=== PATIENT | male | born 1980 | race Two or more races ===

== ENCOUNTER 2021-05-05 18:37 | Emergency (ER) | payer OTHER ==
[~2021-05-05] VITALS: Ht 182.9 cm; Wt 101.2 kg
--- NOTE | 2021-05-05 18:43 | NUR ---
PT BIBA TAKEN TO ER BED 11.
[2021-05-05 18:53] VITALS: BP 121/76
--- NOTE | 2021-05-05 19:03 | NUR ---
41 Y/O MALE BIBA. PATIENT PRESENTS TO ED WITH C/O SEIZURE. FAMILY STATES PT HAD A SIZURE EARLIER TODAY (TONIC/CLONIC) LASTING 2 MINUTES. 911 WAS CALLED AND PT DENIED TRANSPORT. AGAIN AT 1800 THIS EVENING PT HAD ANOTHER TONIC/CLONIC SEIZURE LASTING 5 MINUTES. 911 WAS AGIN CALLED AND TRANSPORTED THE PT. DENIES N/V/D; SKIN IS PINK/WARM/DRY; PT IS ALERT BUT NOT ORIENTED, POSTICTAL; PT IS UNABLE TO AMBULATE DUE TO PREVIOUS CVA IN 2014 LEAVING PT WITH FULL RIGHT SIDE DEFICITES; HR EVEN AND REGULAR; PT DENIES ANY FEVER, CP, SOB, OR COUGH AT THIS TIME; PATIENT STATES PAIN OF 0/10 AT THIS TIME; VSS; PATIENT POSITIONED FOR COMFORT; HOB ELEVATED; BEDRAILS UP X2; BED DOWN. ER MD MADE AWARE OF PT STATUS. HX: EPILEPSY, CVA, DM, ANEURISM (STINT PLACED) ALLERGIES TO PCN MEDS: GLIPIZIDE, ESCITALOPRAM, OXCARBAZEPINE, KEPPRA, ELIQUIS, VIMPAT
--- NOTE | 2021-05-05 19:08 | NUR ---
BLOOD WORK DROPPED AT LAB
--- NOTE | 2021-05-05 19:19 | NUR ---
Pt report given to CHARISSE VASQUEZ. Transfer of care at this time.
--- NOTE | 2021-05-05 19:35 | NUR ---
URINE DIPPED, RESULTS TO CHART
--- NOTE | 2021-05-05 19:50 | NUR ---
TO CT VIA [facility]
--- NOTE | 2021-05-05 20:03 | NUR ---
RETURNED FROM CT
[2021-05-05] MEDS ORDERED: LORazepam 2 MG/ML VIAL ONE (22:09)
[2021-05-05] MEDS ORDERED: LORazepam 2 MG/ML VIAL IVP ONE ×2 (22:10→22:15)
--- NOTE | 2021-05-05 22:10 | NUR ---
PREPARING FOR DISCHARGE. PT NOTED WITH SEIZURE ACTIVITY. DR. WEST AT BEDSIDE. PT MEDICATED WITH ATIVAN ORDERED.
[2021-05-05] MEDS ORDERED: levETIRAcetam 1,000 MG in NACL 0.9% 100 ML IV ONE (22:15)
--- NOTE | 2021-05-05 22:16 | NUR ---
EKG IN PROGRESS
[2021-05-05 22:44] LABS: BASOPHILS # (AUTO) 0.1 K/uL (0.00-0.22); BASOPHILS % (AUTO) 0.5 % (0.0-2.0); EOSINOPHILS # (AUTO) 0.5 K/uL (0-0.4); EOSINOPHILS % (AUTO) 3.5 % (0.0-4.0); HEMATOCRIT 45.7 % (36-52); HEMOGLOBIN 15.1 g/dL (12.0-18.0); LYMPHOCYTES # (AUTO) 3.9 K/uL (2.0-11.5); LYMPHOCYTES % (AUTO) 30.2 % (20.5-51.1); MEAN CORPUSCULAR HEMOGLOBIN 26 pg (27-31); MEAN CORPUSCULAR HGB CONC 33 g/dL (33-37); MEAN CORPUSCULAR VOLUME 79.9 fL (80-94); MONOCYTES # (AUTO) 0.9 K/uL (0.8-1.0); MONOCYTES % (AUTO) 6.6 % (1.7-9.3); NEUTROPHILS # (AUTO) 7.7 K/uL (1.8-7.7); NEUTROPHILS % (AUTO) 59.2 % (42.2-75.2); PLATELET COUNT (AUTO) 255 K/uL (140-450); RED BLOOD CELL COUNT(AUTO) 5.72 MIL/uL (4.20-6.10); RED CELL DISTRIBUTION WIDTH 16.8 % (11.6-13.7)
[2021-05-05] MEDS ORDERED: levETIRAcetam 100 MG/ML VIAL IV ONE (22:44)
[2021-05-05 23:05] LABS: ALBUMIN 3.3 g/dL (3.4-5.0); ANION GAP 21.2 (8-16); CARBON DIOXIDE 21.7 mmol/L (21-32); CREATININE 1.8 mg/dL (0.6-1.3); POTASSIUM 3.9 mmol/L (3.5-5.1); TOTAL BILIRUBIN 0.2 mg/dL (0.0-1.0)
--- NOTE | 2021-05-05 23:20 | NUR ---
PREPARING FOR TRANSFER TO [facility]. MOM IS AT BEDSIDE AND IS AWARE RE POC. NO FURTHER SEIZURE ACTIVITY NOTED
--- NOTE | 2021-05-05 23:31 | NUR ---
Patient to be transferred to [facility]. Is being transferred due to HIGHER LEVEL OF CARE. Receiving facility has accepting physician and available space. ER physician has signed transfer form. Patient or responsible alliance party has agreed to transfer and signed form. Patient belongings inventoried and will be sent with patient. Copy of nursing notes, lab reports, EKG, Physicians Orders and X-rays to be sent with patient. Report called to CHRISTINA ZALDIVAR at receiving facility. [facility] ambulance service has been called for transfer. ETA is 30.
[2021-05-06 00:05] VITALS: BP 114/66
--- NOTE | 2021-05-06 00:05 | NUR ---
TRANSFERED TO [facility]. CHART COPIED AND SENT. [facility] UPDATED WITH ETA
== END 2021-05-06 00:05 | disposition short-term general hospital (02) ==
LOC: MED 18:37
DX: S06.5X9A Traumatic subdural hemorrhage with loss of consciousness of unspecified duration, initial encounter (principal); R56.9 Unspecified convulsions; R11.10 Vomiting, unspecified; E11.9 Type 2 diabetes mellitus without complications; Z88.0 Allergy status to penicillin; Z98.890 Other specified postprocedural states; Z86.73 Personal history of transient ischemic attack (TIA), and cerebral infarction without residual deficits; X58.XXXA Exposure to other specified factors, initial encounter; Y93.89 Activity, other specified; Y92.89 Other specified places as the place of occurrence of the external cause; Y99.8 Other external cause status
CPT/HCPCS: 36415; 70450; 71045; 80053; 84484; 85025; 96365; 96375; 99285; J1953; J2060; 81002; 93005